=== PATIENT | female | born 1965 | race Caucasian/White ===

== ENCOUNTER 2024-06-16 08:50 | Emergency (ER) | payer BC ==
[~2024-06-16] VITALS: Ht 177.8 cm; Wt 64.9 kg
[2024-06-16 08:50] VITALS: BP_SYST 141; PULSE 81; RESP 19; TEMP 98; O2SAT 97
[2024-06-16] MEDS: KETOROLAC TROMETHAMINE 30 MG VIAL IM ONE (09:26)
[2024-06-16] MEDS ORDERED: HYDR-3921 PO (11:20)
[2024-06-16] MEDS: predniSONE 20 MG TABLET PO ONE (11:28)
[2024-06-16] MEDS: HYDROcodone/ACETAMIN 5-325 MG TAB (NORCO/ VICODIN) PO ONE (11:28)
[2024-06-16 11:29] VITALS: BP_SYST 141; PULSE 81; RESP 19; TEMP 98; O2SAT 97
== END 2024-06-16 11:29 | disposition home or self-care (01) ==
LOC: SED 08:50
DX: M79.604 Pain in right leg (principal); M54.50 Low back pain, unspecified; F17.210 Nicotine dependence, cigarettes, uncomplicated; J45.909 Unspecified asthma, uncomplicated; E78.00 Pure hypercholesterolemia, unspecified; Z88.0 Allergy status to penicillin; Z91.040 Latex allergy status; Z79.899 Other long term (current) drug therapy
CPT/HCPCS: 99283; 96372; J1885